=== PATIENT | male | born 1965 | race Asian ===

== ENCOUNTER → 2024-08-14 10:06 | Outpatient (REF) | payer OTHER, SELFPAY ==
[2024-08-14 14:14] LABS: Mumps Virus IgG Positive; Rubeola (Measles) IgG Positive; Varicella Zoster IgG (VZV) Positive
[2024-08-14 19:33] LABS: Hepatitis B Surface Antibody Positive
[2024-08-14 20:13] LABS: Rubella Positive
[2024-08-17 01:34] LABS: Quantiferon Mitogen minus NIL 8.46 IU/mL; Quantiferon NIL 0.14 IU/mL; Quantiferon Plus TB1 minus NIL 0.34 IU/mL (<=0.34); Quantiferon TB Gold Plus Negative (Negative)
== END ==
LOC: OHS 10:06
PROVIDERS: ATTENDING PHYSICIAN Nurse Practitioner Family
DX: Z23 Encounter for immunization (principal)
CPT/HCPCS: 36415; 86480; 86706; 86735; 86762; 86765; 86787

== ENCOUNTER 2025-01-25 16:24 | Emergency (ER) | payer SELFPAY ==
[2025-01-25 16:30] VITALS: BP 140/80
--- NOTE | 2025-01-25 17:23 | ED.GENMED ---
History of Present Illness
General
Chief Complaint: Skin Problem
Time Seen by Provider: 01/25/25 16:49
History of Present Illness
History of Present Illness:
Patient presents to the emergency department with rash to the right neck. This occurred 4 days ago and came on suddenly. Burning pain. Seen by the primary care and was started on Valtrex and gabapentin. States persistent pain. no fever
Phy Exam
Physical Exam
Physical Exam:
General: No acute distress
Head: NCAT
Face: CN2-12 intact, eye appears normal
Neck: Ulcerating rash with vesicles, largely crusted over, to right side of neck, does not cross midline. Involving EAC
Respiratory: No Respiratory distress
Abdomen: No distension
Ext: no edema
Neuro: BAINS, AOx4
Psych: Normal affect
Skin: Normal color
Course
Vital Signs
Initial and Last Documented VS:
Initial Vital Signs
Temp Pulse Resp BP Pulse Ox
98.6 F 98 18 140/80 95
01/25/25 16:30 01/25/25 16:30 01/25/25 16:30 01/25/25 16:30 01/25/25 16:30
Last Documented Vital Signs
Temp Pulse Resp BP Pulse Ox
98.6 F 98 18 140/80 95
01/25/25 16:30 01/25/25 16:30 01/25/25 16:30 01/25/25 16:30 01/25/25 17:25
*Pulse Oximetry
SaO2: 95
Oxygen Mode of Delivery: Room air
Patient hypoxic: no
*Critical Care Note
Total Time (30-74mins, 75-104mins- exclusive of procedures): Not Applicable
ED Attending Note
ED Attending Note
ED Attending Note:
Rash is consistent with zoster. Patient reports antivirals. Will add corticosteroids and add oxycodone for acute pain management.
-
Portions of this chart may have been created with voice recognition software.� Occasional wrong word or��sound alike� substitutions may have occurred due to the inherent limitations of voice recognition software.
Discharge Plan
Departure
Patient Disposition: Home (Routine Discharge)
Date of Disposition: 01/25/25
Time of Disposition: 17:25
Patient with high blood pressure during this ER visit?: Yes
Discharge Problem:
Herpes zoster
Instructions: Shingles
Prescriptions:
New
oxycodone 5 mg capsule
5 mg PO Q8H PRN (Reason: severe pain) Qty: 7 0RF
prednisone 10 mg tablet
See Taper PO DIRECTED Qty: 30 0RF
Taper: Prednisone DC Starting at 40 mg daily
40 mg Daily for 3 Days and 0 Hour
30 mg Daily for 3 Days and 0 Hour
20 mg Daily for 3 Days and 0 Hour
10 mg Daily for 3 Days and 0 Hour
Referrals:
Morena Martin MD [Family Provider, Family Practice]
Interventions
Interventions:
*Risk Screen - Suicide Last Done: 01/25/25 16:30
*General Assessment Last Done: 01/25/25 16:30
*Neglect/Abuse Screening Last Done: 01/25/25 16:30
*Nursing Disposition Last Done: 01/25/25 18:29
ED-Skin Assessment Last Done: 01/25/25 18:28
Discharge Date and Time
Discharge Date/Time: 01/25/25 18:30
Print Language: [place]
== END 2025-01-25 18:30 | disposition home or self-care (01) ==
LOC: EMR 16:24
PROVIDERS: EMERGENCY PHYSICIAN Emergency Medicine; FAMILY PHYSICIAN Family Medicine
DX: B02.9 Zoster without complications (principal); R03.0 Elevated blood-pressure reading, without diagnosis of hypertension
CPT/HCPCS: 99282